=== PATIENT | female | born 1970 | race African-American/Black ===

== ENCOUNTER 2021-07-09 11:24 | Emergency (ER) | payer BC, OTHER ==
[~2021-07-09] VITALS: Ht 172.7 cm; Wt 105.0 kg
[2021-07-09 11:42] VITALS: BP 134/93
[2021-07-09] MEDS ORDERED: CEFTRIAXONE SODIUM 500 MG/VIAL IM ONE (12:00)
[2021-07-09] MEDS ORDERED: CLIN300C12 MT (14:52)
[2021-07-09] MEDS ORDERED: CLIN-116 MT (14:52)
[2021-07-09] MEDS ORDERED: FLUC150T5 MT (15:10)
== END 2021-07-09 15:55 | disposition home or self-care (01) ==
LOC: ER 11:24
DX: L03.116 Cellulitis of left lower limb (principal); Z88.8 Allergy status to other drugs, medicaments and biological substances
CPT/HCPCS: 73630; 96372; 99283; J0696

== ENCOUNTER 2023-06-24 05:32 | Emergency (ER) | payer SELFPAY ==
[~2023-06-24] VITALS: Ht 170.2 cm; Wt 108.0 kg
[~2023-06-24 05:32] MED LIST: CLIN-116 MT; CLIN-194 MT; FLUC150T46 MT
[2023-06-24 05:54] VITALS: BP 132/59; PULSE 82; RESP 14; TEMP 98.9; O2SAT 100
[2023-06-24] MEDS ORDERED: MED4 MT (06:20)
[2023-06-24] MEDS ORDERED: CEPH500T MT (06:20)
[2023-06-24] MEDS ORDERED: IBUP-2029 MT (06:20)
== END 2023-06-24 06:28 | disposition home or self-care (01) ==
LOC: ER 06:20
DX: J02.9 Acute pharyngitis, unspecified (principal); J06.9 Acute upper respiratory infection, unspecified; F17.200 Nicotine dependence, unspecified, uncomplicated; Z20.822 Contact with and (suspected) exposure to COVID-19
CPT/HCPCS: 87426; 99283

== ENCOUNTER 2024-02-18 16:00 | Emergency (ER) | payer BC ==
[~2024-02-18] VITALS: Ht 172.7 cm; Wt 79.0 kg
[~2024-02-18 16:00] MED LIST changes: +CEPH500T MT; +IBUP-2029 MT; +METH4TAB95 MT
[2024-02-18] MEDS ORDERED: ADENOSINE 3 MG/ML 2ML VIAL IV ONE (16:45)
[2024-02-18 16:48] LABS: CARBON DIOXIDE 26 mEq/L (21-32); CHLORIDE 107 mEq/L (98-107); HEMATOCRIT. 43.9 % (36.0-48.0); HEMOGLOBIN. 14.3 g/dL (12.0-16.0); MEAN CORPUSCULAR HEMOGLOBIN 30.6 pg (28.0-32.0); MEAN CORPUSCULAR HGB CONC 32.7 g/dL (31.0-37.0); MEAN CORPUSCULAR VOLUME 93.8 fL (81.0-99.0); MEAN PLATELET VOLUME 8.8 fl (7.4-10.4); PLATELET 302 x1000/uL (130-400); POTASSIUM 3.8 mEq/L (3.5-5.1); RED BLOOD CELL COUNT 4.68 mill/uL (4.2-5.4); RED CELL DISTRIBUTION WIDTH 13.9 % (11.6-14.6); SODIUM 138 mEq/L (136-145); WHITE BLOOD COUNT 9.5 x1000/uL (4.5-11.0)
[2024-02-18 16:49] LABS: DIFFERENTIAL COMMENT 1
[2024-02-18 16:53] LABS: CREATININE 0.8 mg/dL (0.6-1.0); HCG SCREEN NEGATIVE
[2024-02-18 16:54] LABS: GLUCOSE 106 mg/dL (70-105); TROPONIN I HIGH SENSITIVITY 8 ng/L (3.0-34); UREA NITROGEN BLOOD 7 mg/dL (9-23)
[2024-02-18 16:55] LABS: ALANINE AMINOTRANSFERASE 25 IU/L (10-49); ALBUMIN 4.8 g/dL (3.2-4.8); ASPARTATE AMINOTRANSFERASE 21 IU/L (<34)
[2024-02-18 16:56] LABS: BILIRUBIN TOTAL 0.4 mg/dL (0.1-1.0); PROTEIN TOTAL 7.6 g/dL (6.0-8.3)
[2024-02-18 16:59] LABS: BILIRUBIN DIRECT < 0.1 mg/dL (<=3.0)
[2024-02-18 17:15] LABS: PLATELET ESTIMATE NORMAL
[2024-02-18 17:27] VITALS: O2SAT 100
[2024-02-18] MEDS: MIDAZOLAM HCL 2 MG/2 ML VIAL IV ONE (17:27)
[2024-02-18] MEDS: ADENOSINE 3 MG/ML 2ML VIAL IV ONE (17:27)
[2024-02-18 19:22] VITALS: BP 112/78; PULSE 79; RESP 17; TEMP 36.89184; O2SAT 99
== END 2024-02-18 19:49 | disposition home or self-care (01) ==
LOC: ER 16:00
DX: I47.10 Supraventricular tachycardia, unspecified (principal); Z88.8 Allergy status to other drugs, medicaments and biological substances; Z79.899 Other long term (current) drug therapy
CPT/HCPCS: 99291; 96374; 71045; 80076; 80048; 84703; 85025; 84484; 36415; 99152; 93005; J0153; J2250